=== PATIENT | male | born 1970 | race Two or more races ===

== ENCOUNTER 2023-03-03 15:40 | Emergency (ER) | payer MEDICAID ==
[~2023-03-03] VITALS: Ht 185.4 cm; Wt 81.0 kg
[2023-03-03] MEDS ORDERED: METF-1211 PO (15:46)
[2023-03-03 15:48] VITALS: TEMP 98.4
[2023-03-03] MEDS ORDERED: FLUORESCEIN SODIUM 1 MG STRIP OD ONE (16:00)
[2023-03-03] MEDS ORDERED: PROPARACAINE HCL 0.5% 15 ML OPHTHALMIC SOLUTION OD ONE (16:00)
[2023-03-03] MEDS ORDERED: OFLOXACIN 0.3% 5 ML OPHTHALMIC SOLUTION OD ONE (17:00)
[2023-03-03] MEDS ORDERED: OFLO35OS OD (17:21)
[2023-03-03 17:28] VITALS: BP 132/86; PULSE 90; RESP 16
== END 2023-03-03 17:29 | disposition home or self-care (01) ==
LOC: EMS 15:42
DX: S05.01XA Injury of conjunctiva and corneal abrasion without foreign body, right eye, initial encounter (principal); E11.9 Type 2 diabetes mellitus without complications; Z88.0 Allergy status to penicillin; X58.XXXA Exposure to other specified factors, initial encounter; Y93.89 Activity, other specified; Y92.89 Other specified places as the place of occurrence of the external cause; Y99.8 Other external cause status
CPT/HCPCS: 82962; 99283